=== PATIENT | female | born 1980 | race Caucasian/White ===

== ENCOUNTER 2020-09-26 18:43 | Emergency (ER) | payer SELFPAY ==
[~2020-09-26] VITALS: Ht 157.5 cm; Wt 64.4 kg
[2020-09-26 19:00] VITALS: BP 129/77
--- NOTE | 2020-09-26 19:04 | NUR ---
PT TAKEN TO BED #7
--- NOTE | 2020-09-26 19:10 | NUR ---
40 Y/O FEMALE PRESENTS TO ER WITH C/O BILATERAL LOWER ABDOMINAL PAIN X 2 DAYS. 9/10 PAIN. PT ALSO C/O NAUSEA, AND BILATERAL LOWER ABDOMINAL TTP. PT DENIES DIARRHEA, VOMITING, INJURY/TRAUMA TO AFFECTED AREA, DYSURIA, LBP. PT IS A&O X4, VSS, R/R EQUAL, AND UNLABORED. LMP 08/08/20. SIDE RAIL X1, BED IN LOW POSITION, WILL CONTINUE TO MONITOR. NKDA DENIES PMH
[2020-09-26] MEDS ORDERED: ONDANSETRON 4 MG/2 ML VIAL IVP ONE (19:15)
[2020-09-26] MEDS ORDERED: KETOROLAC 30 MG/ML VIAL IVP ONE (19:15)
[2020-09-26] MEDS ORDERED: MORPHINE SULFATE 4 MG/ML SYR IVP ONE (19:15)
[2020-09-26] MEDS ORDERED: NACL 0.9% 1,000 ML IV SCH (19:15)
[2020-09-26 19:28] LABS: BASOPHILS % (AUTO) 0.3 % (0.0-2.0); EOSINOPHILS % (AUTO) 0.1 % (0.0-4.0); HEMATOCRIT 36.1 % (36-48); HEMOGLOBIN 11.4 g/dL (12.0-16.0); LYMPHOCYTES # (AUTO) 1.6 K/uL (2.5-16.5); MEAN CORPUSCULAR HEMOGLOBIN 22 pg (27-31); MEAN CORPUSCULAR HGB CONC 32 g/dL (33-37); MEAN CORPUSCULAR VOLUME 68.8 fL (80-94); MONOCYTES # (AUTO) 0.3 K/uL (0.8-1.0); MONOCYTES % (AUTO) 2.1 % (1.7-9.3); NEUTROPHILS # (AUTO) 12.3 K/uL (1.8-7.7); NEUTROPHILS % (AUTO) 86.5 % (42.2-75.2); PLATELET COUNT (AUTO) 352 K/uL (140-450); RED BLOOD CELL COUNT(AUTO) 5.25 MIL/uL (4.20-5.40); WHITE BLOOD COUNT (AUTO) 14.2 K/uL (4.8-10.8)
[2020-09-26 19:38] LABS: ALBUMIN 3.5 g/dL (3.4-5.0); ANION GAP 20.2 (8-16); CARBON DIOXIDE 23.3 mmol/L (21-32); POTASSIUM 4.5 mmol/L (3.5-5.1); TOTAL BILIRUBIN 0.4 mg/dL (0.0-1.0)
[2020-09-26 19:56] LABS: APPEARANCE,URINE CLEAR (CLEAR); BILIRUBIN,URINE 1+ (NEGATIVE); BLOOD, URINE NEGATIVE (NEGATIVE); COLOR,URINE YELLOW (YELLOW); LEUKOCYTE ESTERASE ,URINE NEGATIVE (NEGATIVE); NITRITE, URINE NEGATIVE (NEGATIVE); UGLUCOSE NEGATIVE (NEGATIVE)
--- NOTE | 2020-09-26 19:56 | NUR ---
PT TAKEN TO CT
--- NOTE | 2020-09-26 20:07 | NUR ---
PT RETURNED FROM CT BACK TO BED 7.
--- NOTE | 2020-09-26 21:03 | NUR ---
Patient discharged with v/s stable. Written and verbal after care instructions given and explained. Patient alert, oriented and verbalized understanding of instructions. Ambulatory with to car. All questions addressed prior to discharge. ID band removed. Patient advised to follow up with PMD. Rx of TYLENOL, ZOFRAN given. Patient educated on indication of medication including possible reaction and side effects. Opportunity to ask questions provided and answered.
[2020-09-26 21:11] VITALS: BP 129/77
== END 2020-09-26 21:03 | disposition home or self-care (01) ==
LOC: MED 18:43
DX: K76.9 Liver disease, unspecified (principal)
CPT/HCPCS: 36415; 74176; 80053; 81003; 81025; 83690; 84703; 85025; 96361; 96374; 96375; 99284; J1885; J2270; J2405; J7030